=== PATIENT | male | born 1960 | race Caucasian/White ===

== ENCOUNTER 2018-10-02 18:16 | Emergency (ER) | payer BC ==
--- NOTE | 2018-10-02 19:26 | EDM.PDOC ---
ED HPI GENERAL MEDICAL PROBLEM - General Chief Complaint: Bite:Animal, Insect Stated Complaint: BEE STING ON NECK-R ARM SWELLING Time Seen by Provider: 10/02/18 19:06 Source of Information: Reports: Patient, RN Notes Reviewed - History of Present Illness INITIAL COMMENTS - FREE TEXT/NARRATIVE: 58 year old patient got stung by a bee or wasp about 5 hrs ago, has than developed some swelling of his hands this later afternoon after that. No generalized hives, erythema or itching. No facial or throat swelling, wheezing or difficulty breathing. No hx of prior adverse rx to bee or wasp stings. The hands or arms did not get erythematous but notable swelling of hands, now somewhat better. - Related Data Allergies Allergy/AdvReac Type Severity Reaction Status Date / Time No Known Allergies Allergy Verified 10/02/18 19:03 Home Meds: Home Meds . [No Known Home Meds] 10/02/18 [History] Past Medical History - Past Health History Medical/Surgical History: Denies Medical/Surgical History Social & Family History - Tobacco Use Smoking Status *Q: Never Smoker - Recreational Drug Use Recreational Drug Use: No ED ROS GENERAL - Review of Systems Review Of Systems: See Below Constitutional: Reports: No Symptoms HEENT: Denies: Throat Pain, Throat Swelling Respiratory: Denies: Shortness of Breath, Wheezing Cardiovascular: Denies: Chest Pain GI/Abdominal: Denies: Abdominal Pain, Nausea, Vomiting Musculoskeletal: Reports: Neck Pain (Mild discomfort area of staining right lateral neck). Denies: Shoulder Pain, Arm Pain Skin: Reports: Erythema (Small area of erythema area of staining right lateral neck) Neurological: Denies: Dizziness, Numbness, Trouble Speaking, Weakness ED EXAM, ANIMAL BITE - Physical Exam Exam: See Below General Appearance: Alert, No Apparent Distress Throat/Mouth: Normal Inspection, Other (No visible swelling) Head: No: Facial Swelling Neck: Supple, Other (mild swelling and erythema area of sting R lateral mid neck , skin otherwise totally clear) Respiratory/Chest: No Respiratory Distress, Lungs Clear, Normal Breath Sounds. No: Rhonchi, Wheezing Cardiovascular: Regular Rate, Rhythm GI/Abdominal: Soft, Non-Tender Extremities: Normal Inspection, Normal Range of Motion, Other (Hands are very minimally swollen at this time, patient states they are better than what they were a few hours ago.). No: Pedal Edema, Leg Pain, Increased Warmth, Redness Neurological: Alert, Oriented, No Motor/Sensory Deficits Skin Exam: Warm/Dry, Other (Mild erythema right neck area of sting, There is no other area of rash or hives) Course - Vital Signs Last Recorded V/S: Last Vital Signs Temp 98.7 F 10/02/18 19:01 Pulse 85 10/02/18 19:01 Resp 16 10/02/18 19:01 BP 140/96 H 10/02/18 19:01 Pulse Ox 96 10/02/18 19:01 - Re-Assessments/Exams Free Text/Narrative Re-Assessment/Exam: 10/03/18 00:17 RDC of correlation of the hand swelling with the insect sting. As noted he does not have any generalized skin changes and no throat discomfort or swelling. No wheezing difficulty breathing. Lungs are all good, and his have been reassured that he is going to do fine with this but needs to return if symptoms worsening in any way. Discharge instructions as documented. Departure - Departure Time of Disposition: 19:23 Disposition: Home, Self-Care 01 Condition: Fair Clinical Impression: Bee sting reaction Qualifiers: Encounter type: initial encounter Injury intent: accidental or unintentional Qualified Code(s): T63.441A - Toxic effect of venom of bees, accidental ( unintentional), initial encounter - Discharge Information Instructions: Bee, Wasp, or Hornet Sting, Adult Referrals: PCP,Not In Area [Primary Care Provider] - Forms: ED Department Discharge Additional Instructions: Ice for localized swelling or discomfort as needed. Continue benadryl 25 or 50 mg q 6 to 8 hr if needed this evening. Consider taking claritin or zyrtec for a few days starting tomorrow which will be last sedating than benadryl until neck sx completely resolve. Check Blood pressure once or twice daily for 7 to 10 days and keep a record for your next clinic appt. Return to ED as needed.
== END 2018-10-02 19:50 | disposition home or self-care (01) ==
LOC: JD.ED 18:16
DX: T63.441A Toxic effect of venom of bees, accidental (unintentional), initial encounter (principal)
CPT/HCPCS: 99282